=== PATIENT | male | born 1995 | race Caucasian/White ===

== ENCOUNTER 2016-08-23 20:33 | Emergency (ER) | payer OTHER ==
[~2016-08-23] VITALS: Ht 175.3 cm; Wt 65.8 kg
[2016-08-23] MEDS ORDERED: NS 1,000 ML IV ONE (21:45)
[2016-08-23 21:47] LABS: BASO % 0.5 % (0.0-1.0); EOS # 0.1 K/mm3 (0.0-0.50); EOS % 1.9 % (0.0-3.0); LARGE UNSTAINED CELL # 0.1 K/mm3 (0.0-0.4); LYMPH # 1.9 K/mm3 (1.5-6.5); LYMPH % 31.7 % (24.0-44.0); MEAN CORPUSCULAR HEMOGLOBIN 30.9 pg (27.0-33.0); MEAN CORPUSCULAR HGB CONC 35.3 g/dl (32.0-36.5); MEAN CORPUSCULAR VOLUME 87.6 fl (80.0-96.0); MONO # 0.3 K/mm3 (0.0-0.8); MONO % 5.3 % (0.0-5.0); NEUTROPHILS # 3.4 K/mm3 (1.8-7.7); NEUTROPHILS % 59.6 % (36.0-66.0); PLATELET COUNT, AUTOMATED 168 k/mm3 (150-450); RED CELL DISTRIBUTION WIDTH 11.6 % (11.5-14.5); WHITE BLOOD COUNT 5.8 K/mm3 (4.0-10.0)
--- NOTE | 2016-08-23 22:10 | REPUSA ---
CLINICAL HISTORY: Syncope TECHNIQUE: Head CT without contrast COMPARISON: No study for comparison is available at the time of interpretation. Brain: No intracranial hemorrhage, hydrocephalus, acute parenchymal edema or evident mass. Calvarium: Unremarkable. Sinuses (partially visualized): Clear. IMPRESSION: No acute intracranial findings.
[2016-08-23 22:45] LABS: ANION GAP 10 MEQ/L (8-16); BLOOD UREA NITROGEN 14 MG/DL (7-18); CALCIUM LEVEL 8.9 MG/DL (8.5-10.1); CARBON DIOXIDE LEVEL 27 MEQ/L (21-32); CHLORIDE LEVEL 105 MEQ/L (98-107); CREATININE FOR GFR 1.11 MG/DL (0.70-1.30); GLUCOSE, FASTING 138 MG/DL (70-105); SODIUM LEVEL 142 MEQ/L (136-145)
[2016-08-23 23:16] LABS: METHADONE URINE NEGATIVE (NEGATIVE)
[2016-08-23 23:56] VITALS: BP 122/68
--- NOTE | 2016-08-24 06:43 | ECGEPIP ---
Stationary ECG Study [facility] - ED Test Date: 2016-08-23 Pat Name: KOLE JAMES Department: Room: - Gender: M Behavioral Health Technician: papi : 1995 Requested By: MARY Donis Order Number: [id number] Reading MD: Freddie Bethea Measurements Intervals [place] Rate: 83 P: 21 [place]: 133 QRS: 66 QRSD: 90 T: 45 QT: 330 QTc: 389 Interpretive Statements SINUS RHYTHM NONSPECIFIC T-WAVE ABNORMALITY 08/06/13 - RATE DECREASED Electronically Signed On 08-24-2016 6:43:46 EDT by Freddie Bethea
== END 2016-08-24 00:15 | disposition left against medical advice (07) ==
LOC: EDBD 20:33 → M ED 21:10
DX: R56.9 Unspecified convulsions (principal); F14.10 Cocaine abuse, uncomplicated; F12.10 Cannabis abuse, uncomplicated; F11.10 Opioid abuse, uncomplicated

== ENCOUNTER → 2017-03-30 | Outpatient (CLI) | payer OTHER, SELFPAY ==
[2017-03-30 19:06] LABS: BASO % 0.4 % (0.0-1.0); IMMATURE GRANULOCYTE % 0.1 % (0-0); LYMPH % 13.5 % (24.0-44.0); MEAN CORPUSCULAR HEMOGLOBIN 29.5 pg (27.0-33.0); MEAN CORPUSCULAR HGB CONC 34.4 g/dl (32.0-36.5); MEAN CORPUSCULAR VOLUME 85.9 fl (80.0-96.0); MONO % 13.5 % (0.0-5.0); NEUTROPHILS # 5.4 10^3/uL (1.8-7.7); NEUTROPHILS % 72.5 % (36.0-66.0); PLATELET COUNT, AUTOMATED 154 10^3/uL (150-450); RED CELL DISTRIBUTION WIDTH 11.1 % (11.5-14.5); WHITE BLOOD COUNT 7.5 10^3/uL (4.0-10.0)
[2017-03-30 20:40] LABS: ANION GAP 9 MEQ/L (8-16); BLOOD UREA NITROGEN 14 MG/DL (7-18); CARBON DIOXIDE LEVEL 29 MEQ/L (21-32); CHLORIDE LEVEL 98 MEQ/L (98-107); CREATININE FOR GFR 1.04 MG/DL (0.70-1.30); GLOMERULAR FILTRATION RATE > 60.0 (>60); GLUCOSE, FASTING 95 MG/DL (70-105); POTASSIUM SERUM 4.2 MEQ/L (3.5-5.1); SODIUM LEVEL 136 MEQ/L (136-145)
== END ==
LOC: M WUC 13:16
PROVIDERS: ATTEND Physician Assistant
DX: J02.9 Acute pharyngitis, unspecified (principal); R50.9 Fever, unspecified

== ENCOUNTER → 2017-03-30 | Outpatient (REF) | payer OTHER, SELFPAY | LOC: M LAB REF 16:17 | PROVIDERS: ATTEND Physician Assistant | DX: J02.9 Acute pharyngitis, unspecified (principal); R50.9 Fever, unspecified ==

== ENCOUNTER 2017-09-29 14:59 | Outpatient (RCR) | payer MEDICAID | END 2017-10-12 | LOC: M OUTALCOH 14:59 | DX: F11.20 Opioid dependence, uncomplicated (principal); F12.20 Cannabis dependence, uncomplicated ==

== ENCOUNTER 2017-10-21 16:04 | Outpatient (RCR) | payer MEDICAID | END 2017-11-12 | LOC: M OUTALCOH 11-04 15:00 | DX: F11.20 Opioid dependence, uncomplicated (principal); F12.20 Cannabis dependence, uncomplicated ==

== ENCOUNTER 2017-11-16 10:07 | Outpatient (RCR) | payer MEDICAID | END 2017-12-12 | LOC: M OUTALCOH 10:07 | DX: F11.20 Opioid dependence, uncomplicated (principal); F12.20 Cannabis dependence, uncomplicated ==

== ENCOUNTER 2017-12-14 10:20 | Outpatient (RCR) | payer MEDICAID | END 2018-01-12 | LOC: M OUTALCOH 10:20 | DX: F11.20 Opioid dependence, uncomplicated (principal); F12.20 Cannabis dependence, uncomplicated ==

== ENCOUNTER 2018-02-18 15:27 | Outpatient (RCR) | payer MEDICAID | END 2018-03-14 | LOC: M OUTALCOH 15:27 | DX: F11.20 Opioid dependence, uncomplicated (principal); F12.20 Cannabis dependence, uncomplicated ==

== ENCOUNTER 2018-03-17 16:00 | Outpatient (RCR) | payer MEDICAID | END 2018-04-14 | LOC: M OUTALCOH 03-24 16:00 | DX: F11.20 Opioid dependence, uncomplicated (principal); F12.20 Cannabis dependence, uncomplicated ==

== ENCOUNTER 2018-04-19 15:26 | Outpatient (RCR) | payer MEDICAID | END 2018-05-14 | LOC: M OUTALCOH 04-30 10:00 | DX: F11.20 Opioid dependence, uncomplicated (principal); F12.20 Cannabis dependence, uncomplicated ==

== ENCOUNTER → 2022-06-25 | Outpatient (REF) | payer OTHER ==
[2022-06-25 23:30] LABS: GC DNA AMPLIFICATION NEGATIVE (NEGATIVE)
== END ==
LOC: M WUC 20:01
PROVIDERS: ATTEND Physician Assistant
DX: R30.0 Dysuria (principal)

== ENCOUNTER 2023-10-08 15:56 | Emergency (ER) | payer OTHER, SELFPAY ==
[~2023-10-08] VITALS: Ht 172.7 cm; Wt 70.5 kg
[2023-10-08 18:31] VITALS: BP 112/72; TEMP 97.3; O2SAT 98
== END 2023-10-08 18:32 | disposition home or self-care (01) ==
LOC: M ED 15:56
DX: K04.7 Periapical abscess without sinus (principal); K11.1 Hypertrophy of salivary gland